=== PATIENT | female | born 1965 | race Caucasian/White ===

== ENCOUNTER 2018-04-28 08:22 | Day surgery (SDC) | payer BC ==
[~2018-04-28] VITALS: Ht 160 cm; Wt 80.7 kg
[~2018-04-28 08:22] MED LIST: CONEST1.25 PO; Cipro500 MG PO; Colace100 MG PO; Crutch1 EACH MISC; Esgic Tablet1 EACH PO; GABA100 PO; LIOT5; LIOT5 PO; MELO7.5 PO; METR500 PO; Norco 10-325 T1 EACH PO; Norco 5-325 Ta1 EACH PO; PRAZ2 PO; SERT100 PO; VICODIN 5-3001 EACH PO; ZOLP5 PO; Zofran Odt4 MG SL; Zofran Odt8 MG SL
== END 2018-04-28 23:02 | disposition home or self-care (01) ==
LOC: ORSCMMR 08:22 → ORD 09:00 → ORSCMMR 09:00
PROVIDERS: Internal Medicine Gastroenterology
PROC: 0DBL8ZX Excision of Transverse Colon, Via Natural or Artificial Opening Endoscopic, Diagnostic (ICD-10-PCS; principal; 2018-04-28 09:00)
PROC: 0DBB8ZX Excision of Ileum, Via Natural or Artificial Opening Endoscopic, Diagnostic (ICD-10-PCS; principal; 2018-04-28 09:00)
PROC: 0DBN8ZX Excision of Sigmoid Colon, Via Natural or Artificial Opening Endoscopic, Diagnostic (ICD-10-PCS; principal; 2018-04-28 09:00)
PROC: 0DBK8ZX Excision of Ascending Colon, Via Natural or Artificial Opening Endoscopic, Diagnostic (ICD-10-PCS; principal; 2018-04-28 09:00)
DX: K62.5 Hemorrhage of anus and rectum (principal); K63.5 Polyp of colon; K57.30 Diverticulosis of large intestine without perforation or abscess without bleeding; E03.9 Hypothyroidism, unspecified; Z79.899 Other long term (current) drug therapy; Z87.891 Personal history of nicotine dependence
CPT/HCPCS: 88305; J7030

== ENCOUNTER 2019-08-23 10:23 | Emergency (ER) | payer OTHER, BC ==
[~2019-08-23] VITALS: Ht 160 cm; Wt 75.3 kg
[2019-08-23] MEDS ORDERED: ESTR2 PO (10:52)
[2019-08-23] MEDS ORDERED: CONEST.625 PO (10:53)
[2019-08-23] MEDS ORDERED: Robaxin-750750 MG PO (12:19)
[2019-08-23] MEDS ORDERED: NAPR550 PO (12:19)
[2019-08-23] MEDS ORDERED: Ultram50 MG PO (12:25)
== END 2019-08-23 12:42 | disposition home or self-care (01) ==
LOC: ER 10:23
DX: T14.8XXA Other injury of unspecified body region, initial encounter (principal); M62.838 Other muscle spasm; W10.9XXA Fall (on) (from) unspecified stairs and steps, initial encounter; Z79.899 Other long term (current) drug therapy; E03.9 Hypothyroidism, unspecified; Z87.891 Personal history of nicotine dependence
CPT/HCPCS: 72100; 73030; 96372-59; 96374; 99283-25; A9270-GY; J1885; J3360

== ENCOUNTER 2019-08-28 12:31 | Emergency (ER) | payer OTHER, BC ==
[~2019-08-28] VITALS: Ht 160 cm; Wt 75.3 kg
[~2019-08-28 12:31] MED LIST changes: +CONEST.625 PO; +ESTR2 PO; +NAPR550 PO; +Robaxin-750750 MG PO; +Ultram50 MG PO
[2019-08-28] MEDS ORDERED: Prednisone20 MG PO (13:17)
[2019-08-28] MEDS ORDERED: HYDR1TAB94 PO (13:17)
== END 2019-08-28 13:28 | disposition home or self-care (01) ==
LOC: ER 12:31
DX: M54.42 Lumbago with sciatica, left side (principal); Z87.891 Personal history of nicotine dependence; Z79.899 Other long term (current) drug therapy
CPT/HCPCS: 99282